=== PATIENT | female | born 1945 | race Caucasian/White ===

== ENCOUNTER → 2019-06-19 09:59 | Outpatient (CLI) | payer MEDICARE, SELFPAY ==
--- NOTE | 2019-06-19 10:23 | XR_ITS ---
PROCEDURE: XR CHEST 2V CLINICAL HISTORY: screening, POSITIVE TB SKIN TEST COMPARISON: CXR CHEST(2 VIEWS-NOT PORTABLE) from 12/14/2016 CXR2V XR chest 2V from 12/28/2018 FINDINGS: The cardiomediastinal silhouette and pulmonary vascularity are within normal limits. There are some stable thick strands of increased density at the right lung base. There is a stable left midlung benign calcified granuloma. Lung wren are otherwise clear. Degenerative changes at the right shoulder and the left humeral prosthesis remains stable. IMPRESSION: No change or acute process. Probable persistent linear atelectasis or scarring at the right lung base. Dictated by: Carson Jasso 06/19/2019 10:55 Electronically signed by Carson Jasso in [place] 06/19/2019 10:55
== END ==
PROVIDERS: PCP Emergency Medicine; Visit Provider Emergency Medicine
DX: Z11.1 Encounter for screening for respiratory tuberculosis (principal)
CPT/HCPCS: 71046

== ENCOUNTER 2019-09-05 10:14 | Inpatient (IN) ==
--- NOTE | 2019-09-05 10:34 | Emergency Department Note ---
ED Disposition Clinical Impression: Urinary tract infection, Altered mental status Disposition: Admitted As Inpatient Condition on Discharge: Serious Referrals: Brandon Kendrick MD [Primary Care Provider] - - Critical Care Critical Care Time: No Attestation: On , the high probability of a clinically significant, sudden or life threatening deterioration of the following system(s) required my full and direct attention, intervention and personal management. The time I documented below is in addition to time spent performing reported procedures but includes the following listed in this critical care notation. Medical Decision Making - Medical Records Medical records reviewed: Yes: I reviewed the patient's medical records. - Evelio Inquiry Pt receiving controlled substance: No Vital Signs: 09/05/19 10:23 09/05/19 11:02 09/05/19 12:08 Temperature 98.0 F Temperature Source Rectal Pulse Rate [Right Radial] 86 89 72 Respiratory Rate 19 Blood Pressure [Right Arm] 154/89 H 160/75 H 176/81 H Blood Pressure Mean [Right Arm] 110 103 112 Blood Pressure Source [Right Arm] Automatic Cuff Automatic Cuff Blood Pressure Position [Right Arm] Sitting Sitting 02 Sat by Pulse Oximetry 98 98 96 Oxygen Delivery Method Room Air Room Air Room Air 09/05/19 12:42 Temperature Temperature Source Pulse Rate [Right Radial] 68 Respiratory Rate Blood Pressure [Right Arm] 132/58 L Blood Pressure Mean [Right Arm] 82 Blood Pressure Source [Right Arm] Automatic Cuff Blood Pressure Position [Right Arm] Sitting 02 Sat by Pulse Oximetry 96 Oxygen Delivery Method - Lab Data Lab results reviewed: Yes: I reviewed the patient's lab results. Lab Results 09/05/19 10:21: Urine Color Yellow, Urine Appearance Clear, Urine pH 5.5, Ur Specific [place] >= 1.030, Urine Protein 1+, Urine Glucose (UA) Negative, Urine Ketones Negative, Urine Blood 2+, Urine Nitrate Negative, Urine Bilirubin Negative, Urine Urobilinogen 0.2, Ur Leukocyte Esterase 2+ A, Urine WBC Tntc, Urine Bacteria 2+ 09/05/19 10:21: WBC 9.7, RBC 4.08 L, Hgb 12.9, Hct 39.2, MCV 96.1, MCH 31.5 H, MCHC 32.8, RDW 12.7, Plt Count 459 H, MPV 7.8, Neut % (Auto) 66.5, Lymph % (Auto) 25.1, [place] % (Auto) 6.5, Eos % (Auto) 1.4, Baso % (Auto) 0.5, Neut # (Auto) 6.5, Lymph # (Auto) 2.4, [place] # (Auto) 0.6, Eos # (Auto) 0.1, Baso # (Auto) 0.1 09/05/19 10:21: Sodium 142, Potassium 3.8, Chloride 104, Carbon Dioxide 29, Anion Gap 12.8, BUN 18, Creatinine 1.00, Estimated Creat Clear 53, Estimated GFR 54 L, Est GFR ( Amer) 65, Glucose 129 H, Calcium 8.8, Total Bilirubin 0.4, AST 14 L, ALT 15, Alkaline Phosphatase 115, Total Protein 6.9, Albumin 2.9 L, Globulin 4.0 H, Albumin/Globulin Ratio 0.7 L 09/05/19 10:21: Lactate 0.9 09/05/19 10:21: Influenza Type A Ag Negative, Influenza Type B Ag Negative 09/05/19 10:21: Troponin I < 0.02 Result diagrams: 09/05/19 10:21 09/05/19 10:21 Orders (Tests/Meds): ED MEDICATIONS Discontinued Medications Generic Name Dose Route Start Last Admin Trade Name Freq PRN Reason Stop Dose Admin Sodium Chloride 1,000 mls @ 999 mls/hr 09/05/19 10:30 09/05/19 11:12 Sod Chlor 0.9% 1000ml Bag IV 09/05/19 11:30 999 mls/hr .Q1H1M LAISHA Administration Ertapenem 1 gm/ Sodium 50 mls @ 100 mls/hr 09/05/19 10:45 09/05/19 11:12 Chloride IV 09/05/19 10:46 100 mls/hr ONCE ONE Administration Protocol ORDERS Category Date Time Status CT chest wo con Stat Cat Scan 09/05/19 11:58 Ordered Troponin I Q3H Lab 09/05/19 13:45 Ordered Troponin I Q3H Lab 09/05/19 16:45 Ordered Blood Culture Stat Micro 09/05/19 10:21 Received Urine Culture Stat Micro 09/05/19 10:21 Received - Radiology Data #1 Image(s): Chest Image Reviewed: Yes I reviewed the patient's radiology results, Yes I reviewed the patient's radiology image Preliminary Findings: Abnormal (Elevated right hemidiaphragm, no acute findings.) Altered Mental Status HPI - General Chief Complaint: Altered Mental Status Stated Complaint: AMS Time Seen by Provider: 09/05/19 10:30 Mode of Arrival: EMS Limitations: Altered Mental Status Description of Symptoms (Recalled from ER Triage Doc. by RN): pt presents to ed with c/o altered mental status and temp of 100.1 at [facility] - History of Present Illness HPI narrative: 74-year old female from a [facility] with a history of conduct disorder, cognitive disorder, bipolar disorder, dementia, diabetes type 2 and hypertension presents to the emergency department with the complaint of altered mental status. MD complaint: altered mental status Onset (ago): unknown (Noted this morning after waking.) Severity: moderate - Related Data Home Medications Medication Instructions Recorded Confirmed Aspirin [Aspir 81] 81 mg PO DAILY 08/19/19 09/05/19 Ferrous Sulfate 325 mg PO DAILY 08/19/19 09/05/19 Metoprolol Tartrate [Lopressor 12.5 mg PO BID 08/19/19 09/05/19 25mg tablet] Pravastatin Sodium 10 mg PO DAILY 08/19/19 09/05/19 Trazodone HCl 25 mg PO DAILY 08/19/19 09/05/19 lisinopriL [Lisinopril 20mg Tab] 10 mg PO DAILY 08/19/19 09/05/19 risperiDONE [Risperidone] 0.5 mg PO BID 08/19/19 09/05/19 Baclofen [Lioresal 10mg tablet] 10 mg PO BID 09/05/19 09/05/19 Allergies Allergy/AdvReac Type Severity Reaction Status Date / Time prochlorperazine Allergy Unknown NA-NAUSEA/V Verified 09/05/19 10:27 [From COMPAZINE] OMITING Ragweed AdvReac Unknown "MAKES HER Uncoded 09/03/17 14:16 NERVOUS" [facility] History - Hepatitis A Screen Drug use history?: No High risk sexual behaviors?: No History of sexually transmitted infection?: No Currently employed?: No Childcare worker?: No Do you have indoor plumbing?: Yes Do you have electricity?: Yes Attestation statement:: This patient has been screened for Hepatitis A risk factors. I have reviewed the patient's past medical history: Yes Medical History: Reports:: Diabetes Mellitus Type 2 Denies:: Diabetes Mellitus Type 1 - Social History Smoking Status: Never smoker Alcohol Intake: never Occupational Status: retired, disabled ROS Obtained: Yes unobtainable due to mental status Physical Exam - General General appearance: in no apparent distress, other (Awake and follows simple commands but not alert.) - Head Head exam: atraumatic, normocephalic, normal inspection - Eye Eye exam: Present: normal appearance, PERRL, EOMI - ENT ENT exam: Present: mucous membranes moist - Neck Neck exam: Present: normal inspection, full ROM, trachea midline. Absent: meningismus, lymphadenopathy - Chest Chest inspection: Present: normal inspection, symmetric chest wall rise. Absent: tenderness - Respiratory Respiratory exam: Present: normal lung sounds bilaterally. Absent: respiratory distress - Cardiovascular Cardiovascular exam: Present: regular rate, normal rhythm, normal heart sounds. Absent: JVD - Abdominal Exam Abdominal exam: Present: soft, normal bowel sounds. Absent: distention, ten derness, guarding - External exam: Present: other (Douglas catheter placed with return of purulent turbid urine.) - Back Exam Back exam: Present: normal inspection - Neurological Exam Neurological exam: Present: CN II-XII intact. Absent: motor sensory deficit - Psychiatric Psychiatric exam: Present: flat affect - Skin Skin exam: Present: warm, dry, intact, normal color
[2019-09-05 10:35] LABS: Microscopic, Urine URINE MICROSCOPIC (MICROSCOPIC)
[2019-09-05 10:39] LABS: Basophils # 0.1 K/mm3 (0-0.2); Basophils % 0.5 % (0.1-2.0); Eosinophils # 0.1 K/mm3 (0.0-0.4); Eosinophils % 1.4 % (0.1-12.0); Hematocrit 39.2 % (37.0-47.0); Hemoglobin 12.9 g/dL (12.2-16.2); Lymphocytes # 2.4 K/mm3 (0.7-4.5); Lymphocytes % 25.1 % (10-50); Mean Corpuscular HGB Conc 32.8 g/dL (31.8-35.4); Mean Corpuscular Volume 96.1 fl (81-99); Mean Platelet Volume 7.8 fl (7.4-10.4); Monocytes # 0.6 K/mm3 (0.1-1.0); Monocytes % 6.5 % (1.7-9.3); Neutrophils # 6.5 K/mm3 (1.8-7.8); Neutrophils % 66.5 % (37.0-80.0); Platelet Count 459 K/mm3 (142-424); Red Blood Count 4.08 M/mm3 (4.20-5.40); Red Cell Distribution Width 12.7 % (11.5-17.5); White Blood Count 9.7 K/mm3 (4.8-10.8)
[2019-09-05 10:44] LABS: Appearance,Urine CLEAR (Clear); Bilirubin,Urine Negative (Negative); Blood, Urine 2+ (Negative); Color,Urine YELLOW (Yellow); Glucose,Urine (UA) Negative (Negative); Ketones,Urine Negative (Negative); Leukocyte Esterase,Urine 2+ (Negative); PH,Urine 5.5 (5.0-8.5); Protein,Urine 1+ (Negative); Specific Gravity, Urine >= 1.030 (1.005-1.030); Urobilinogen,Urine 0.2 EU/dl (0.2)
[2019-09-05 10:50] LABS: Albumin Level 2.9 gm/dL (3.4-5.0); Albumin/Globulin Ratio 0.7 (1.1-1.8); Anion Gap 12.8 mEq/L (5-15); Bilirubin,Total 0.4 mg/dL (0.2-1.0); Calcium 8.8 mg/dL (8.5-10.1); Total Protein,Serum 6.9 gm/dL (6.4-8.2)
[2019-09-05 11:31] LABS: Bacteria,Urine 2+ /lpf; WBC,Urine TNTC #/hpf (0-3)
--- NOTE | 2019-09-05 14:09 | Pharmacy Consult Notes ---
[facility] Pharmacy VTE Monitoring - Patient Demographics Admission date: 09/05/19 Report Date: 09/05/19 Time: 14:09 Allergies/Adverse Reactions: Patient Allergies prochlorperazine [From COMPAZINE] Allergy (Unknown, Verified 09/05/19 10:27) NA-NAUSEA/VOMITING Ragweed Adverse Reaction (Unknown, Uncoded 09/03/17 14:16) "MAKES HER NERVOUS" Height: 1.52 m Weight: 70.76 kg Patient Problems: Current Active Problems Urinary tract infection (Acute) Altered mental status (Acute) - VTE Risk Labs: VTE Related Lab Results Hgb 12.9 g/dL (12.2-16.2) 09/05/19 10:21 Hct 39.2 % (37.0-47.0) 09/05/19 10:21 Plt Count 459 K/mm3 (142-424) H 09/05/19 10:21 BUN 18 mg/dL (7-18) 09/05/19 10:21 Creatinine 1.00 mg/dL (0.55-1.02) 09/05/19 10:21 Estimated Creat Clear 53 mL/min (50-200) 09/05/19 10:21 - Prophylaxis VTE Prophylaxis Ordered?: Yes Types of VTE Prophylaxis: TEDS Knee High Location of Applied Device: Bilateral Lower Extremeties
--- NOTE | 2019-09-05 21:49 | History & Physical Report ---
*Admission Date: 09/05/19 *Chief complaint: weakness *History of present illness: this wf from [facility] with change in mental status today and sent to ed for eval-4-year old female from a [facility] with a history of conduct disorder, cognitive disorder, bipolar disorder, dementia, diabetes type 2 and hypertension presents to the emergency department with the complaint of altered mental status. pt was found to have uti and admitted with ivf and abx - [facility] History I have reviewed the patient's past medical history: Yes Medical History: Reports:: Diabetes Mellitus Type 2, Hypertension Denies:: Diabetes Mellitus Type 1 *Have you ever received a pneumonia vaccine?: Yes *Have you received a flu vaccine this season?: Yes - *Social History Smoking Status: Never smoker Alcohol Intake: never *Occupational Status:: retired, disabled *Travel in the last 8 weeks: None Family Hx:: Unable to obtain Review of Systems - Review of Systems Review of systems:: pertinent systems reviewed and negative unless documented below - Constitutional Reports malaise, Reports weakness, Denies fever(s) - Eyes Denies change in vision - ENT Denies sore throat - *Cardiovascular Denies chest pain - *Respiratory Denies cough - *Gastrointestinal Denies abdominal pain - *Genitourinary Denies blood in urine - *Musculoskeletal Denies joint pain, Denies joint swelling - Integumentary/Breasts Denies rash - *Neurologic Denies seizure-like activity - Psychiatric Reports confusion Meds Home Medications Medication Instructions Recorded Confirmed Type Aspirin [Aspir 81] 81 mg PO DAILY 08/19/19 09/05/19 History Ferrous Sulfate 325 mg PO DAILY 08/19/19 09/05/19 History Metoprolol Tartrate [Lopressor 12.5 mg PO BID 08/19/19 09/05/19 History 25mg tablet] Pravastatin Sodium 10 mg PO HS 08/19/19 09/05/19 History Trazodone HCl 25 mg PO HS 08/19/19 09/05/19 History lisinopriL [Lisinopril 20mg Tab] 10 mg PO DAILY 08/19/19 09/05/19 History risperiDONE [Risperidone] 0.5 mg PO BID 08/19/19 09/05/19 History Acetaminophen [Acetaminophen 325mg 650 mg PO Q4HP PRN 09/05/19 09/05/19 History tab] Baclofen [Lioresal 10mg tablet] 10 mg PO BID 09/05/19 09/05/19 History Ondansetron [Zofran 4mg ODT] 4 mg PO Q6HP PRN 09/05/19 09/05/19 History Allergies Allergy/AdvReac Type Severity Reaction Status Date / Time prochlorperazine Allergy Unknown NA-NAUSEA/V Verified 09/05/19 10:27 [From COMPAZINE] OMITING Ragweed AdvReac Unknown "MAKES HER Uncoded 09/03/17 14:16 NERVOUS" Exam Vital signs and Labs for Last 24 Hours: Temp Pulse Resp BP Pulse Ox 98.3 F 78 18 163/79 H 96 09/05/19 20:05 09/05/19 20:05 09/05/19 20:05 09/05/19 20:05 09/05/19 20:05 Laboratory Results - last 24 hr 09/05/19 10:21: Urine Color Yellow, Urine Appearance Clear, Urine pH 5.5, Ur Specific [place] >= 1.030, Urine Protein 1+, Urine Glucose (UA) Negative, Urine Ketones Negative, Urine Blood 2+, Urine Nitrate Negative, Urine Bilirubin Negative, Urine Urobilinogen 0.2, Ur Leukocyte Esterase 2+ A, Urine WBC Tntc, Urine Bacteria 2+ 09/05/19 10:21: WBC 9.7, RBC 4.08 L, Hgb 12.9, Hct 39.2, MCV 96.1, MCH 31.5 H, MCHC 32.8, RDW 12.7, Plt Count 459 H, MPV 7.8, Neut % (Auto) 66.5, Lymph % (Auto) 25.1, [place] % (Auto) 6.5, Eos % (Auto) 1.4, Baso % (Auto) 0.5, Neut # (Auto) 6.5, Lymph # (Auto) 2.4, [place] # (Auto) 0.6, Eos # (Auto) 0.1, Baso # (Auto) 0.1 09/05/19 10:21: Sodium 142, Potassium 3.8, Chloride 104, Carbon Dioxide 29, Anion Gap 12.8, BUN 18, Creatinine 1.00, Estimated Creat Clear 53, Estimated GFR 54 L, Est GFR ( Amer) 65, Glucose 129 H, Calcium 8.8, Total Bilirubin 0.4, AST 14 L, ALT 15, Alkaline Phosphatase 115, Total Protein 6.9, Albumin 2.9 L, Globulin 4.0 H, Albumin/Globulin Ratio 0.7 L 09/05/19 10:21: Lactate 0.9 09/05/19 10:21: Influenza Type A Ag Negative, Influenza Type B Ag Negative 09/05/19 10:21: Troponin I < 0.02 09/05/19 13:50: Troponin I < 0.02 09/05/19 15:44: POC Glucose 125 H 09/05/19 16:36: Troponin I < 0.02 I & O for Last 24 hours: Intake & Output 09/03/19 09/04/19 09/05/19 09/06/19 11:59 11:59 11:59 11:59 Intake Total 186 / 186 Balance 186 / 186 Weight 156 lb 111 lb 2 oz - Constitutional no acute distress - *Routine HEENT Exam Head: Present: normocephalic Eye: Present: EOMI, PERRL. Absent: scleral injection ENT: Present: mucous membranes dry - *Routine Neck Exam Present: supple. Absent: JVD - *Routine Respiratory Exam Present: decreased breath sounds - *Routine Cardiovascular Exam Present: RRR, murmur, S4 - *Routine Abdominal Exam Present: soft - *Routine Extremities Exam Absent: calf tenderness - *Routine Skin Exam Present: intact - *Routine Neurological Exam Present: alert, CN II-XII intact. Absent: oriented X3 - Routine Psychiatric Exam Present: unable to assess Assessment and Plan (1) Urinary tract infection Current visit: Yes Status: Acute Qualifiers: Urinary tract infection type: site unspecified Hematuria presence: without hematuria Qualified Code(s): N39.0 - Urinary tract infection, site not specified Category: Medical Code(s): N39.0 - Urinary tract infection, site not specified (2) Acute delirium Current visit: Yes Status: Acute Category: Medical Code(s): R41.0 - Disorientation, unspecified (3) Bipolar 1 disorder Current visit: Yes Status: Acute Category: Medical Code(s): F31.9 - Bipolar disorder, unspecified (4) Hyperlipidemia Current visit: Yes Status: Acute Qualifiers: Hyperlipidemia type: unspecified Qualified Code(s): E78.5 - Hyperlipidemia, unspecified Category: Medical Code(s): E78.5 - Hyperlipidemia, unspecified (5) Diaphragmatic hernia Current visit: Yes Status: Acute Qualifiers: Obstruction and gangrene presence: without obstruction or gangrene Qualified Code(s): K44.9 - Diaphragmatic hernia without obstruction or gangrene Category: Medical Code(s): K44.9 - Diaphragmatic hernia without obstruction or gangrene (6) Cholelithiasis Current visit: Yes Status: Acute Qualifiers: Cholelithiasis location: gallbladder Cholecystitis presence: without cholecystitis Biliary obstruction: without biliary obstruction Qualified Code(s): K80.20 - Calculus of gallbladder without cholecystitis without obstruction Category: Medical Code(s): K80.20 - Calculus of gallbladder without cholecystitis without obstruction
[2019-09-06 06:09] LABS: Basophils % 0.4 % (0.1-2.0); Eosinophils # 0.2 K/mm3 (0.0-0.4); Eosinophils % 2.6 % (0.1-12.0); Hematocrit 33.7 % (37.0-47.0); Lymphocytes # 1.9 K/mm3 (0.7-4.5); Lymphocytes % 24.5 % (10-50); Mean Corpuscular HGB Conc 32.5 g/dL (31.8-35.4); Mean Corpuscular Volume 95.8 fl (81-99); Monocytes # 0.6 K/mm3 (0.1-1.0); Monocytes % 8.3 % (1.7-9.3); Neutrophils # 4.9 K/mm3 (1.8-7.8); Neutrophils % 64.4 % (37.0-80.0); Platelet Count 379 K/mm3 (142-424); Red Blood Count 3.52 M/mm3 (4.20-5.40); Red Cell Distribution Width 12.7 % (11.5-17.5); White Blood Count 7.7 K/mm3 (4.8-10.8)
[2019-09-06 06:22] LABS: Albumin Level 2.2 gm/dL (3.4-5.0); Albumin/Globulin Ratio 0.6 (1.1-1.8); Anion Gap 12.7 mEq/L (5-15); Bilirubin,Total 0.3 mg/dL (0.2-1.0); Calcium 8.1 mg/dL (8.5-10.1); Globulin 3.4 gm/dl (1.3-3.2); Phosphorous 3.3 mg/dL (2.4-4.9); Total Protein,Serum 5.6 gm/dL (6.4-8.2)
[2019-09-06 06:33] LABS: Chol/HDL Ratio 2.7 (1-3.5)
--- NOTE | 2019-09-06 08:58 | Electrocardiograph Report ---
APPROVED REPORT Exam: Resting ECG HR:83 bpm ECG Measurements Heart Rate 83 AXES VT 138 P 30 QRSd 64 QRS -12 QT 316 T20 QTc 371 <Conclusion> Normal sinus rhythm Septal infarct, age undetermined ST & T wave abnormality, consider inferolateral ischemia Abnormal ECG Electronically signed by : Marty Pikcens, 09/06/2019 08:57:59
--- NOTE | 2019-09-06 09:19 | Progress Note ---
Internal Medicine - PN: Subj *Date: 09/06/19 *Time: 09:16 Interval history: looks better - has gram neg and in invanz Exam Vital signs and Labs for Last 24 Hours: Temp Pulse Resp BP Pulse Ox 97.8 F 70 18 161/55 H 94 L 09/06/19 07:38 09/06/19 07:38 09/06/19 07:38 09/06/19 07:38 09/06/19 07:38 Laboratory Results - last 24 hr 09/05/19 10:21: Urine Color Yellow, Urine Appearance Clear, Urine pH 5.5, Ur Specific [place] >= 1.030, Urine Protein 1+, Urine Glucose (UA) Negative, Urine Ketones Negative, Urine Blood 2+, Urine Nitrate Negative, Urine Bilirubin Negative, Urine Urobilinogen 0.2, Ur Leukocyte Esterase 2+ A, Urine WBC Tntc, Urine Bacteria 2+ 09/05/19 10:21: WBC 9.7, RBC 4.08 L, Hgb 12.9, Hct 39.2, MCV 96.1, MCH 31.5 H, MCHC 32.8, RDW 12.7, Plt Count 459 H, MPV 7.8, Neut % (Auto) 66.5, Lymph % (Auto) 25.1, [place] % (Auto) 6.5, Eos % (Auto) 1.4, Baso % (Auto) 0.5, Neut # (Auto) 6.5, Lymph # (Auto) 2.4, [place] # (Auto) 0.6, Eos # (Auto) 0.1, Baso # (Auto) 0.1 09/05/19 10:21: Sodium 142, Potassium 3.8, Chloride 104, Carbon Dioxide 29, Anion Gap 12.8, BUN 18, Creatinine 1.00, Estimated Creat Clear 53, Estimated GFR 54 L, Est GFR ( Amer) 65, Glucose 129 H, Calcium 8.8, Total Bilirubin 0.4, AST 14 L, ALT 15, Alkaline Phosphatase 115, Total Protein 6.9, Albumin 2.9 L, Globulin 4.0 H, Albumin/Globulin Ratio 0.7 L 09/05/19 10:21: Lactate 0.9 09/05/19 10:21: Influenza Type A Ag Negative, Influenza Type B Ag Negative 09/05/19 10:21: Troponin I < 0.02 09/05/19 13:50: Troponin I < 0.02 09/05/19 15:44: POC Glucose 125 H 09/05/19 16:36: Troponin I < 0.02 09/05/19 21:03: POC Glucose 92 09/06/19 02:43: POC Glucose 89 09/06/19 05:30: POC Glucose 107 09/06/19 05:50: WBC 7.7, RBC 3.52 L, Hgb 11.0 L D, Hct 33.7 L, MCV 95.8, MCH 31.2, MCHC 32.5, RDW 12.7, Plt Count 379, MPV 8.0, Neut % (Auto) 64.4, Lymph % (Auto) 24.5, [place] % (Auto) 8.3, Eos % (Auto) 2.6, Baso % (Auto) 0.4, Neut # (Auto) 4.9, Lymph # (Auto) 1.9, [place] # (Auto) 0.6, Eos # (Auto) 0.2, Baso # (Auto) 0.0 09/06/19 05:50: Sodium 143, Potassium 3.7, Chloride 107, Carbon Dioxide 27, Anion Gap 12.7, BUN 14, Creatinine 0.61 D, Estimated Creat Clear 39, Estimated GFR 95, Est GFR ( Amer) 115 D, Glucose 96 D, Calcium 8.1 L, Phosphorus 3.3, Magnesium 1.7, Total Bilirubin 0.3, AST 14 L, ALT 12, Alkaline Phosphatase 91, Total Protein 5.6 L, Albumin 2.2 L D, Globulin 3.4 H, Albumin/Globulin Ratio 0.6 L, Triglycerides 93, Cholesterol 112 L, LDL Cholesterol 52, VLDL Cholesterol 19, HDL Cholesterol 41, Cholesterol/HDL Ratio 2.7 I & O for Last 24 hours: Intake & Output 09/03/19 09/04/19 09/05/19 09/06/19 11:59 11:59 11:59 11:59 Intake Total 844 / 844 Balance 844 / 844 Weight 156 lb 113 lb Microbiology Reports for the Last 24 Hours: Microbiology 09/05/19 10:21 Urine,Catheterized Urine Culture - Preliminary Gram Negative Rods - Constitutional no acute distress - *Routine HEENT Exam Head: Present: normocephalic Eye: Present: EOMI, PERRL ENT: Present: mucous membranes dry - *Routine Neck Exam Absent: JVD - *Routine Respiratory Exam Present: decreased breath sounds - *Routine Cardiovascular Exam Present: RRR, murmur - *Routine Abdominal Exam Present: soft - *Routine Extremities Exam Absent: calf tenderness - *Routine Skin Exam Present: intact - *Routine Neurological Exam Present: alert, CN II-XII intact. Absent: oriented X3 - Routine Psychiatric Exam Present: unable to assess Assessment and Plan (1) Urinary tract infection Current visit: Yes Status: Acute Qualifiers: Urinary tract infection type: site unspecified Hematuria presence: without hematuria Qualified Code(s): N39.0 - Urinary tract infection, site not specified Category: Medical Code(s): N39.0 - Urinary tract infection, site not specified (2) Acute delirium Current visit: Yes Status: Acute Category: Medical Code(s): R41.0 - Disorientation, unspecified (3) Bipolar 1 disorder Current visit: Yes Status: Acute Category: Medical Code(s): F31.9 - Bipolar disorder, unspecified (4) Hyperlipidemia Current visit: Yes Status: Acute Qualifiers: Hyperlipidemia type: unspecified Qualified Code(s): E78.5 - Hyperlipidemia, unspecified Category: Medical Code(s): E78.5 - Hyperlipidemia, unspecified (5) Diaphragmatic hernia Current visit: Yes Status: Acute Qualifiers: Obstruction and gangrene presence: without obstruction or gangrene Qualified Code(s): K44.9 - Diaphragmatic hernia without obstruction or gangrene Category: Medical Code(s): K44.9 - Diaphragmatic hernia without obstruction or gangrene (6) Cholelithiasis Current visit: Yes Status: Acute Qualifiers: Cholelithiasis location: gallbladder Cholecystitis presence: without cholecystitis Biliary obstruction: without biliary obstruction Qualified Code(s): K80.20 - Calculus of gallbladder without cholecystitis without obstruction Category: Medical Code(s): K80.20 - Calculus of gallbladder without cholecystitis without obstruction (7) Gram-negative infection Current visit: Yes Status: Acute Category: Medical Code(s): A49.9 - Bacterial infection, unspecified
--- NOTE | 2019-09-07 13:46 | Discharge Summary ---
General - General Admission date:: 09/05/19 Discharge date: 09/07/19 HPI HPI: this wf from half-way with change in mental status today and sent to ed for eval-4-year old female from a half-way with a history of conduct disorder, cognitive disorder, bipolar disorder, dementia, diabetes type 2 and hypertension presents to the emergency department with the complaint of altered mental status. pt was found to have uti and admitted with ivf and abx - Hospital Course Hospital Course: pt has did well with ivf and antibiotics - she is ambulatory and usha diet - she has e coli uti and will be placed on po abx to finish course - labs stable Objective Vital signs: Temp Pulse Resp BP Pulse Ox 98.1 F 75 20 158/62 H 95 09/07/19 07:54 09/07/19 07:54 09/07/19 07:54 09/07/19 07:54 09/07/19 07:54 no acute distress - *Routine HEENT Exam Head: Present: normocephalic Eye: Present: EOMI, PERRL ENT: Present: mucous membranes dry - *Routine Neck Exam Absent: JVD - *Routine Respiratory Exam Present: CTA bilaterally - *Routine Cardiovascular Exam Present: RRR, murmur, S4 - *Routine Abdominal Exam Present: soft - *Routine Extremities Exam Absent: calf tenderness - *Routine Skin Exam Present: intact - *Routine Neurological Exam Present: alert, oriented X3, CN II-XII intact - Routine Psychiatric Exam Present: normal affect Results Labs on day of discharge: Labs from last 24 hours 09/07/19 09/07/19 09/06/19 11:32 06:03 19:51 POC Glucose 111 H 93 137 H 09/06/19 16:29 POC Glucose 103 Preliminary micro results at discharge 09/05/19 10:21 Blood Culture - Preliminary Blood NO GROWTH AFTER 48 HOURS 09/05/19 10:21 Blood Culture - Preliminary Blood NO GROWTH AFTER 48 HOURS DS: Diagnosis - Discharge Diagnosis (1) Urinary tract infection Status: Acute (2) Acute delirium Status: Acute (3) Bipolar 1 disorder Status: Acute (4) Hyperlipidemia Status: Acute (5) Diaphragmatic hernia Status: Acute (6) Cholelithiasis Status: Acute (7) Gram-negative infection Status: Acute (8) E. coli UTI (urinary tract infection) Status: Acute Discharge Plan - Patient Discharge Instructions ACTIVITY: Continue current activity DIET: continue same diet Patient Instructions: DI for Kidney Infection, DI for Urinary Tract Infection (UTI), DI for Altered Mental Status - Follow up Plan Follow up with: Brandon Kendrick MD [Primary Care Provider] - Disposition: Home, Self-[facility] Medications: Home Medications Medication Instructions Recorded Confirmed Type Aspirin [Aspir 81] 81 mg PO DAILY 08/19/19 09/05/19 History Ferrous Sulfate 325 mg PO DAILY 08/19/19 09/05/19 History Metoprolol Tartrate [Lopressor 12.5 mg PO BID 08/19/19 09/05/19 History 25mg tablet] Pravastatin Sodium 10 mg PO HS 08/19/19 09/05/19 History Trazodone HCl 25 mg PO HS 08/19/19 09/05/19 History lisinopriL [Lisinopril 20mg Tab] 10 mg PO DAILY 08/19/19 09/05/19 History risperiDONE [Risperidone] 0.5 mg PO BID 08/19/19 09/05/19 History Acetaminophen [Acetaminophen 325mg 650 mg PO Q4HP PRN 09/05/19 09/05/19 History tab] Baclofen [Lioresal 10mg tablet] 10 mg PO BID 09/05/19 09/05/19 History Ondansetron [Zofran 4mg ODT] 4 mg PO Q6HP PRN 09/05/19 09/05/19 History cephALEXin [Keflex 500mg Cap] 500 mg PO TID #30 cap 09/07/19 Rx Prescriptions/Medication Reconciliation: New cephALEXin [Keflex 500mg Cap] 500 mg PO TID #30 cap Continued Pravastatin Sodium 10 mg PO HS Trazodone HCl 25 mg PO HS risperiDONE [Risperidone] 0.5 mg PO BID Metoprolol Tartrate [Lopressor 25mg tablet] 12.5 mg PO BID lisinopriL [Lisinopril 20mg Tab] 10 mg PO DAILY Ferrous Sulfate 325 mg PO DAILY Acetaminophen [Acetaminophen 325mg tab] 650 mg PO Q4HP PRN PRN Reason: FEVER/PAIN Aspirin [Aspir 81] 81 mg PO DAILY Baclofen [Lioresal 10mg tablet] 10 mg PO BID Ondansetron [Zofran 4mg ODT] 4 mg PO Q6HP PRN PRN Reason: Nausea And Vomiting - Problem Reconciliation Problems Reviewed?: Yes
== END 2019-09-07 15:22 | disposition home or self-care (01) | DRG 690 ==
LOC: 2ND 10:14 → ER 10:14 → OBSVTOIN 13:22 → 2ND 14:00
PROVIDERS: ADMIT Emergency Medicine; ATTEND Emergency Medicine
CPT/HCPCS: 36415; 71010; 71045; 71250; 80053; 80061; 81001; 82962; 83605; 83735; 84100; 84484; 85025; 87040; 87086; 87088; 87186; 87275; 87276; 93005; 96365; 96367; 97162; 97166; 99285; J1335